=== PATIENT | male | born 1995 | race African-American/Black ===

== ENCOUNTER 2021-04-09 10:38 | Emergency (ER) | payer SELFPAY ==
[~2021-04-09] VITALS: Ht 182.9 cm; Wt 99.8 kg
[2021-04-09] MEDS ORDERED: ONDANSETRON HCL INJ 2MG/ML 2ML 2 MG/ML VIAL IV STA (11:57)
[2021-04-09] MEDS ORDERED: SODIUM CHLORIDE 0.9% 1000ML 1,000 ML IV SCH ×2 (12:00→13:00)
[2021-04-09] MEDS ORDERED: ACETAMINOPHEN 325 MG TAB PO ONE (12:00)
[2021-04-09] MEDS ORDERED: IBUPROFEN 400 MG TAB PO ONE (12:00)
[2021-04-09] MEDS ORDERED: IBUPROFEN 400 MG TAB ONE (12:01)
[2021-04-09] MEDS ORDERED: ACETAMINOPHEN 325 MG TAB ONE (12:01)
[2021-04-09] MEDS ORDERED: ONDANSETRON HCL INJ 2MG/ML 2ML 2 MG/ML VIAL ONE (12:01)
[2021-04-09] MEDS ORDERED: SODIUM CHLORIDE 0.9% 250ML 250 ML ONE (14:30)
[2021-04-09] MEDS ORDERED: CEFTRIAXONE 1 GM VIAL ONE (14:31)
[2021-04-09] MEDS ORDERED: CEFTRIAXONE 1 GM in SODIUM CHLORIDE 0.9% 50ML 50 ML IV ONE (15:00)
[2021-04-09] MEDS ORDERED: LEVOFLOXACIN750 MG PO (15:33)
[2021-04-09] MEDS ORDERED: PROMETHAZINE-D118 ML PO (15:36)
[2021-04-09] MEDS ORDERED: ONDANSETRON ODT4 MG PO (15:36)
[2021-04-09 16:30] VITALS: BP 137/68
== END 2021-04-09 16:32 | disposition home or self-care (01) ==
LOC: FSED 11:18
DX: R50.9 Fever, unspecified (principal); J18.8 Other pneumonia, unspecified organism; R05.9 Cough, unspecified; Z20.822 Contact with and (suspected) exposure to COVID-19
CPT/HCPCS: 71046; 80053; 81003; 85025; 96374; 99284; J0456; J0696; J2405; J7050; U0002